=== PATIENT | male | born 1975 | race African-American/Black ===

== ENCOUNTER 2023-03-08 14:05 | Emergency (ER) | payer OTHER, SELFPAY ==
[2023-03-08 14:11] VITALS: BP 140/91; PULSE 77; RESP 20; TEMP 36.7; O2SAT 100
--- NOTE | 2023-03-08 14:14 | ED.EAR ---
HPI - Ear Problem General Chief complaint: Ear Stated complaint: Ear Pain Time Seen by Provider: 03/08/23 14:14 Source: patient Mode of arrival: ambulatory Limitations: no limitations History of Present Illness HPI Narrative: Mr. Childs is a 48-year-old male patient presenting to the clinic today with complaints of bilateral ear pain times 3 days. He reports he has had recent recurrent ear infections for over the last couple months. Has been placed on antibiotics and steroids for this. States it feels like there is ringing needs ears and is making him dizzy at times. No history of Meneires disease Related Data Allergies Allergy/AdvReac Type Severity Reaction Status Date / Time No Known Allergies Allergy Verified 03/08/23 14:18 Review of Systems Review of Systems: Pertinent positives per HPI. Patient denies any fever, chills, rash, headache, visual changes, cough, shortness of breath, chest pain, palpitations, nausea, vomiting, diarrhea, constipation, abdominal pain, or any urinary issues. PMFSH Comments At the time of my signature, I reviewed and agree with the nursing past medical, surgical, social, and family history. There is no relevant family history pertinent to the patient complaint. Exam Narrative: General: Well-developed, well nourished, in no apparent distress Head: Normocephalic, atraumatic Eyes: Pupils equally round and reactive to light bilaterally, EOM intact, sclera and conjunctive clear, no discharge, lids normal Ears: Right tMs intact, bulging, red, left TM intact, bulging, with fluid noted behind the TM, ear canals clear, no drainage, grossly hearing normal. Nose: Nares patent, clear nasal discharge, moderate inflammation, no sinus tenderness. Mouth: Oral pharynx without lesions or masses, good dentition, MMM. Neck: Supple, trachea midline, no enlargement of anterior or posterior cervical nodes, no thyroid masses or goiter palpable. Cardio: Regular rate and rhythm, s1 and s2 normal, no murmur appreciated. Resp: Clear to auscultation bilaterally, no rhonchi, rales, wheezing or rubs Course Course Emergency Course: Portions of this record may have been created with voice recognition software. Level of Care: Express Care Visit Vital Signs Vital signs: Vital signs reviewed Medical Decision Making MDM Narrative Medical decision making narrative: At the time of visit patient is resting comfortably on the exam table. I suspect patient has right otitis media and serous otitis to the left ear. Also reporting some tinnitus. Has had recurrent ear infections over the last couple months. Supportive measures were discussed with the patient he voiced understanding discharge instructions agrees to treatment plan. Will give patient referral for ENT for further evaluation. Differential Diagnosis Differential Diagnosis: Otitis media, otitis externa, eustachian tube dysfunction, cerumen impaction, upper respiratory infection, serous otitis Discharge Plan Discharge Clinical Impression: Otitis media Qualifiers: Otitis media type: suppurative Chronicity: acute Laterality: right Recurrence: recurrent Spontaneous tympanic membrane rupture: without spontaneous rupture Qualified Code(s): H66.004 - Acute suppurative otitis media without spontaneous rupture of ear drum, recurrent, right ear Acute serous otitis media Qualifiers: Laterality: left Recurrence: recurrent Qualified Code(s): H65.05 - Acute serous otitis media, recurrent, left ear Tinnitus Qualifiers: Laterality: bilateral Qualified Code(s): H93.13 - Tinnitus, bilateral Patient Disposition: Home, Self-Care Condition: Stable Instructions: Antibiotic Form, Ear Infection (ED), Tinnitus (ED), Fluid In The Ear (Serous Otitis Media) (ED) Additional Instructions: Take any prescribed medications only as directed-take Augmentin and prednisone as prescribed Tylenol/motrin as needed for pain May use heating pad to alleviate pain
== END 2023-03-08 14:27 | disposition home or self-care (01) ==
PROVIDERS: Emergency Provider Nurse Practitioner Family
DX: H66.004 Acute suppurative otitis media without spontaneous rupture of ear drum, recurrent, right ear (principal); H65.05 Acute serous otitis media, recurrent, left ear; H93.13 Tinnitus, bilateral
CPT/HCPCS: 99213; G0463